=== PATIENT | male | born 1985 | race Caucasian/White ===

== ENCOUNTER 2023-11-22 11:57 | Emergency (ER) | payer SELFPAY ==
[2023-11-22] MEDS ORDERED: Acetaminophen 500 MG TAB ONE (13:15)
== END 2023-11-22 15:05 | disposition left against medical advice (07) ==
LOC: ERS 11:57
DX: S62.616A Displaced fracture of proximal phalanx of right little finger, initial encounter for closed fracture (principal); F17.210 Nicotine dependence, cigarettes, uncomplicated; W26.8XXA Contact with other sharp object(s), not elsewhere classified, initial encounter